=== PATIENT | male | born 1960 | race Two or more races ===

== ENCOUNTER → 2020-04-24 | Outpatient (CLI) | payer BC | END | disposition home or self-care (01) | LOC: LABWHC1 16:00 | PROVIDERS: ATTEND Internal Medicine | DX: R05 Cough (principal); R50.9 Fever, unspecified | CPT/HCPCS: 87635; C9803 ==

== ENCOUNTER 2021-06-18 19:49 | Inpatient (IN) | payer BC ==
[2021-06-18] MEDS ORDERED: SODIUM CHLORIDE 0.9% 1,000 ML IV STA ×3 (20:26→21:29)
[2021-06-18] MEDS ORDERED: MORPHINE SULFATE 4 MG/ML SYRINGE IV STA (20:26)
[2021-06-18] MEDS ORDERED: KETOROLAC 15 MG/ML 1 ML VIAL IVP STA (20:26)
[2021-06-18] MEDS ORDERED: ONDANSETRON 4 MG/2 ML VIAL IVP STA (20:26)
[2021-06-18] MEDS ORDERED: diphenhydrAMINE 50 MG/ML 1 ML VIAL IVP STA (20:26)
[2021-06-18] MEDS ORDERED: ACETAMINOPHEN TAB 500 MG TAB PO STA (20:38)
[2021-06-18 20:41] LABS: Basophils % (A) 0 %; Eosinophils % (A) 0 %; HCT 45.2 % (39.0-53.0); HGB 15.8 gm/dL (13.0-17.5); Lymphocytes # (A) 0.8 k/uL (1.0-4.8); Lymphocytes % (A) 5 %; MCH 30.4 pg (25.0-35.0); Mean Platelet Volume 6.8; Monocytes # (A) 0.9 k/uL (0-1.0); Monocytes % (A) 5 %; Neutrophils # (A) 15.2 k/uL (1.3-7.7); Neutrophils % (A) 89 %; Platelet Count 210 k/uL (150-450); RDW 13.5 % (11.5-15.5)
[2021-06-18 20:44] LABS: Appearance,Urine Clear (Clear); Bacteria,Urine Occasional /hpf; Bilirubin,Urine Negative (Negative); Blood,Urine Moderate (Negative); Color,Urine Light Yellow; Glucose,Urine (UA) 4+ (Negative); Ketones,Urine Negative (Negative); Leukocyte Esterase,Urine Large (Negative); Nitrite,Urine Negative (Negative); Protein,Urine 1+ (Negative); RBC,Urine 7 /hpf (0-5); Specific Gravity,Urine 1.017 (1.001-1.035); Squamous Epithelial Cell,Urine <1 /hpf (0-4); Urobilinogen,Urine <2.0 mg/dL (<2.0); WBC,Urine 115 /hpf (0-5)
[2021-06-18 20:51] LABS: INR 1.1 (<1.2); Partial Thromboplastin Time 25.5 sec (22.0-30.0); Prothrombin Time 11.3 sec (9.0-12.0)
[2021-06-18 20:52] LABS: ALT 19 U/L (4-49); AST 25 U/L (17-59); African American GFR (CKD) >90 (>60 ml/min/1.73 sqM); Albumin 4.9 g/dL (3.5-5.0); Alkaline Phosphatase 86 U/L (38-126); Amylase 57 U/L (30-110); Anion Gap 17 mmol/L; Blood Urea Nitrogen 17 mg/dL (9-20); Calcium 10.1 mg/dL (8.4-10.2); Carbon Dioxide 20 mmol/L (22-30); Chloride 99 mmol/L (98-107); Glucose 200 mg/dL (74-99); Lipase 139 U/L (23-300); Non-African American GFR(CKD) >90 (>60 ml/min/1.73 sqM); Potassium 3.5 mmol/L (3.5-5.1); Sodium 136 mmol/L (137-145); Total Bilirubin 1.7 mg/dL (0.2-1.3); Total Protein 7.8 g/dL (6.3-8.2)
[2021-06-18] MEDS ORDERED: VANCOMYCIN IV PER PHARMACY 1 EACH MISC MISCELLANE PRN (21:28)
--- NOTE | 2021-06-18 21:41 | CT ---
EXAMINATION TYPE: CT abdomen pelvis w con DATE OF EXAM: 06/18/2021 COMPARISON: None HISTORY: Abdominal pain. Lower back pain with fever. CT DLP: 1429.1 mGycm Automated exposure control for dose reduction was used. CONTRAST: Performed with IV Contrast, patient injected with 100 mL of Isovue 300. Images obtained from the diaphragm to the floor the pelvis with IV contrast. Lung bases are clear of infiltrate. There is no pleural effusion. Heart size is normal. There is no p ericardial effusion. Liver spleen and stomach pancreas appear intact. The bile ducts are not dilated. There is 3 cm cyst i n the left lobe of the liver. There is 1 cm cyst anterior right lobe of the liver. The gallbladder ap pears normal. Stomach is intact. There is no adrenal mass. Kidneys show satisfactory contrast opacification. There is no hydronephrosi s. Delayed images show normal renal excretion. There is no retroperitoneal adenopathy. Bladder disten ds smoothly. There is no inguinal hernia. There is no free fluid in the pelvis. There is no sign of a pelvic mass. Appendix appears normal. There is no mesenteric edema. There is no ascites or free air. There is no bowel obstruction. The lumbar vertebra have normal spacing and alignment. Posterior elements are intact. There is no com pression fracture. Abdominal aorta is atheromatous. There is L1 minimal anterior wedging of 15%. The bony pelvis is intact. The hip joints are intact. IMPRESSION: Negative CT scan abdomen and pelvis. Normal appendix.
[2021-06-18] MEDS ORDERED: CEFEPIME 2 GM in SODIUM CHLORIDE 0.9% 100 ML IVPB ONE (22:00)
[2021-06-18] MEDS ORDERED: VANCOMYCIN 1,750 MG in SODIUM CHLORIDE 0.9% 500 ML 500 ML IVPB ONE (22:00)
--- NOTE | 2021-06-18 22:47 | US ---
EXAMINATION TYPE: US kidneys/renal and bladder DATE OF EXAM: 06/18/2021 COMPARISON: NONE CLINICAL HISTORY: right flank pain, eval for hydronephrosis/stone. Right flank pain. EXAM MEASUREMENTS: Right Kidney: 13.0 x 5.7 x 6.2 cm Left Kidney: 12.8 x 6.0 x 6.2 cm Right Kidney: Appears enlarged. Lobulated contour, no mass clearly seen. Left Kidney: Appears slightly enlarged. Prominent pyramids. Hyperechoic area seen anteriorly: 0.4 x 0 .6 x 0.4 cm. Bladder: Appears anechoic. Wall appears slightly thickened at 0.49 cm. Bilateral Jets seen: Yes IMPRESSION: Kidneys are large but no discrete mass. No renal obstruction.
[2021-06-18] MEDS ORDERED: ONDANSETRON 4 MG/2 ML VIAL IVP PRN (22:54)
[2021-06-18] MEDS ORDERED: MORPHINE SULFATE 4 MG/ML SYRINGE IV PRN (22:54)
[2021-06-18] MEDS ORDERED: NALOXONE 0.4 MG/ML 1 ML VIAL IV PRN (22:54)
--- NOTE | 2021-06-18 23:18 | ED ---
General Adult HPI - General Chief complaint: Fever Stated complaint: Fever Time Seen by Provider: 06/18/21 20:05 Source: patient, RN notes reviewed, old records reviewed Mode of arrival: ambulatory Limitations: no limitations - History of Present Illness Initial comments: Patient is a 60-year-old male who presents emergency Department febrile, complaining of right-sided flank pain and right mid back pain. States the symptoms have been ongoing for one day. His past medical history remarkable for hypertension, hyperlipidemia, diabetes. He was instructed to come to the emergency department for further evaluation. Denies any chest pain, shortness of breath, diarrhea but does endorse nausea without emesis. Has less of an appetite. Patient did have Covid 2 years ago, but denies any recent symptoms other than the fever currently. His no other acute complaints at this time. He is concerned regarding his abdominal discomfort with nausea. Denies any dysuria but does endorse hematuria as well as urinary sediment. - Related Data Home Medications Medication Instructions Recorded Confirmed Atorvastatin [Lipitor] 40 mg PO HS 06/18/21 06/18/21 Empagliflozin [Jardiance] 10 mg PO DAILY 06/18/21 06/18/21 Losartan Potassium 100 mg PO DAILY 06/18/21 06/18/21 metFORMIN HCL 1,000 mg PO BID 06/18/21 06/18/21 Allergies Allergy/AdvReac Type Severity Reaction Status Date / Time Penicillins Allergy Anaphylaxis Verified 06/18/21 21:14 Review of Systems ROS Statement: Those systems with pertinent positive or pertinent negative responses have been documented in the HPI. Review of Systems: CONST: Endorses fever EYES: Denies blurry vision ENT: Denies nasal congestion C/V: Denies Chest pain RESP: Denies shortness of breath GI: Endorses abdominal pain : Endorses hematuria SKIN: Denies rash. MSK: Denies joint pain. NEURO: Denies headache ROS Other: All systems not noted in ROS Statement are negative. Past Medical History Past Medical History: Deep Vein Thrombosis (DVT), GERD/Reflux History of Any Multi-Drug Resistant Organisms: None Reported Past Surgical History: No Surgical Hx Reported Past Psychological History: No Psychological Hx Reported Smoking Status: Never smoker Past Alcohol Use History: None Reported Past Drug Use History: None Reported General Exam - General Exam Comments Initial Comments: General: Appears ill, in moderate distress secondary to abdominal discomfort. HEAD: Normal with no signs of head trauma. EYES: PERRLA, EOMI, conjunctiva normal, no discharge. ENT: Hearing grossly intact, normal oropharynx. RESPIRATORY: Clear breath sounds bilaterally. No wheezes, rales, or rhonchi. C/V: Patient is tachycardic with a regular rhythm. S1 and S2 auscultated. Peripheral pulses 2+ and intact throughout. ABD: Abdomen is soft, nondistended. Patient is tender to palpation in the right flank as well as right CVA. No left-sided abdominal tenderness. No guarding, peritoneal signs, or rebound tenderness. EXT: Normal range of motion, no obvious deformity SKIN: No rashes or lesions observed on exposed skin. NEURO: Alert and oriented 4. No focal deficits. Limitations: no limitations Course Vital Signs 06/18/21 19:53 Temperature 100.1 F H Pulse Rate 120 H Respiratory 20 Rate Blood Pressure 135/76 O2 Sat by Pulse 94 L Oximetry Medical Decision Making - Medical Decision Making Patient with patient's presentation and physical exam, I'm concerned for possible acute abdominal process for his current symptoms at this time. We will obtain abdominal laboratory studies, screening EKG, and ultrasound as well as abdominal CT. He'll be given a 1 L fluid bolus, as well as some dramatic treatment with IV Toradol, morphine, Zofran, Benadryl. He was in agreement this plan. Patient's EKG showed normal sinus rhythm with no signs of acute ischemia. Laboratory studies were remarkable for a leukocytosis of 17.0, lactic acid mildly elevated 2.3, as well as a urinalysis remarkable for 4+ glucose, 1+ protein, moderate blood, large leuk esterase, 7 RBCs, 115 WBCs. There are occasional bacteria. Covid is negative. Patient is mildly acidotic with a carbon dioxide of 20, which is likely secondary to his lactic acid. There is no anion gap. No concern for DKA at this time. Patient's glucose level is 200. At 2124, patient met sepsis criteria, having 3 sirs criteria. He was started on empiric antibiotics, vancomycin and cefepime. Blood cultures had already been obtained and sent. Vital signs remained within normal limits, and patient had lactic acid that was minimally elevated at 2.3. Patient already received a 1 L fluid bolus and was started on a second liter fluid bolus as well as 130 mL/h maintenance fluids to meet the 30 mL per KG minimal criteria. Patient has never been hypotensive and lactic acid is only 2.3 and therefore we do not complete the sepsis focused exam at this time. Patient's CT imaging revealed no acute intra-abdominal process. Renal ultrasound revealed large kidneys but no hydronephrosis, or renal obstruction. Patient was reevaluated multiple times throughout his stay in the emergency department. I Updated the patient results of his imaging and laboratory studies. He is feeling much improved, pain is under control and no longer feels nauseous. I would like to admit him to the hospital at this time, he was in agreement this plan. Patient has pyelonephritis. I spoke with the admitting team KAYLAH Bobby from [facility], who accepted the admission. Patient was therefore adm itted to Dr. Arellano in serious condition. - Lab Data Result diagrams: 06/18/21 20:31 06/18/21 20:31 Lab Results 06/18/21 06/18/21 06/18/21 Range/Units 20:31 20:31 20:31 WBC 17.0 H (3.8-10.6) k/uL RBC 5.20 (4.30-5.90) m/uL Hgb 15.8 (13.0-17.5) gm/dL Hct 45.2 (39.0-53.0) % MCV 87.0 (80.0-100.0) fL MCH 30.4 (25.0-35.0) pg MCHC 35.0 (31.0-37.0) g/dL RDW 13.5 (11.5-15.5) % Plt Count 210 (150-450) k/uL MPV 6.8 Neutrophils % 89 % Lymphocytes % 5 % Monocytes % 5 % Eosinophils % 0 % Basophils % 0 % Neutrophils # 15.2 H (1.3-7.7) k/uL Lymphocytes # 0.8 L (1.0-4.8) k/uL Monocytes # 0.9 (0-1.0) k/uL Eosinophils # 0.0 (0-0.7) k/uL Basophils # 0.0 (0-0.2) k/uL PT 11.3 (9.0-12.0) sec INR 1.1 (<1.2) APTT 25.5 (22.0-30.0) sec Sodium (137-145) mmol/L Potassium (3.5-5.1) mmol/L Chloride (98-107) mmol/L Carbon Dioxide (22-30) mmol/L Anion Gap mmol/L BUN (9-20) mg/dL Creatinine (0.66-1.25) mg/dL Est GFR (CKD-EPI)AfAm (>60 ml/min/1.73 sqM) Est GFR (CKD-EPI)NonAf (>60 ml/min/1.73 sqM) Glucose (74-99) mg/dL Lactic Ac Sepsis Rflx Plasma Lactic Acid Julius (0.7-2.0) mmol/L Calcium (8.4-10.2) mg/dL Total Bilirubin (0.2-1.3) mg/dL AST (17-59) U/L ALT (4-49) U/L Alkaline Phosphatase (38-126) U/L Total Protein (6.3-8.2) g/dL Albumin (3.5-5.0) g/dL Amylase (30-110) U/L Lipase (23-300) U/L Urine Color Light Yellow Urine Appearance Clear (Clear) Urine pH 5.0 (5.0-8.0) Ur Specific Severance 1.017 (1.001-1.035) Urine Protein 1+ H (Negative) Urine Glucose (UA) 4+ H (Negative) Urine Ketones Negative (Negative) Urine Blood Moderate H (Negative) Urine Nitrite Negative (Negative) Urine Bilirubin Negative (Negative) Urine Urobilinogen <2.0 (<2.0) mg/dL Ur Leukocyte Esterase Large H (Negative) Urine RBC 7 H (0-5) /hpf Urine WBC 115 H (0-5) /hpf Ur Squamous Epith Cells <1 (0-4) /hpf Urine Bacteria Occasional H (None) /hpf Coronavirus (PCR) (Not Detectd) 06/18/21 06/18/21 06/18/21 Range/Units 20:31 20:31 21:03 WBC (3.8-10.6) k/uL RBC (4.30-5.90) m/uL Hgb (13.0-17.5) gm/dL Hct (39.0-53.0) % MCV (80.0-100.0) fL MCH (25.0-35.0) pg MCHC (31.0-37.0) g/dL RDW (11.5-15.5) % Plt Count (150-450) k/uL MPV Neutrophils % % Lymphocytes % % Monocytes % % Eosinophils % % Basophils % % Neutrophils # (1.3-7.7) k/uL Lymphocytes # (1.0-4.8) k/uL Monocytes # (0-1.0) k/uL Eosinophils # (0-0.7) k/uL Basophils # (0-0.2) k/uL PT (9.0-12.0) sec INR (<1.2) APTT (22.0-30.0) sec Sodium 136 L (137-145) mmol/L Potassium 3.5 (3.5-5.1) mmol/L Chloride 99 (98-107) mmol/L Carbon Dioxide 20 L (22-30) mmol/L Anion Gap 17 mmol/L BUN 17 (9-20) mg/dL Creatinine 0.66 (0.66-1.25) mg/dL Est GFR (CKD-EPI)AfAm >90 (>60 ml/min/1.73 sqM) Est GFR (CKD-EPI)NonAf >90 (>60 ml/min/1.73 sqM) Glucose 200 H (74-99) mg/dL Lactic Ac Sepsis Rflx Y Plasma Lactic Acid Julius 2.3 H* (0.7-2.0) mmol/L Calcium 10.1 (8.4-10.2) mg/dL Total Bilirubin 1.7 H (0.2-1.3) mg/dL AST 25 (17-59) U/L ALT 19 (4-49) U/L Alkaline Phosphatase 86 (38-126) U/L Total Protein 7.8 (6.3-8.2) g/dL Albumin 4.9 (3.5-5.0) g/dL Amylase 57 (30-110) U/L Lipase 139 (23-300) U/L Urine Color Urine Appearance (Clear) Urine pH (5.0-8.0) Ur Specific Severance (1.001-1.035) Urine Protein (Negative) Urine Glucose (UA) (Negative) Urine Ketones (Negative) Urine Blood (Negative) Urine Nitrite (Negative) Urine Bilirubin (Negative) Urine Urobilinogen (<2.0) mg/dL Ur Leukocyte Esterase (Negative) Urine RBC (0-5) /hpf Urine WBC (0-5) /hpf Ur Squamous Epith Cells (0-4) /hpf Urine Bacteria (None) /hpf Coronavirus (PCR) (Not Detectd) 06/18/21 Range/Units 21:46 WBC (3.8-10.6) k/uL RBC (4.30-5.90) m/uL Hgb (13.0-17.5) gm/dL Hct (39.0-53.0) % MCV (80.0-100.0) fL MCH (25.0-35.0) pg MCHC (31.0-37.0) g/dL RDW (11.5-15.5) % Plt Count (150-450) k/uL MPV Neutrophils % % Lymphocytes % % Monocytes % % Eosinophils % % Basophils % % Neutrophils # (1.3-7.7) k/uL Lymphocytes # (1.0-4.8) k/uL Monocytes # (0-1.0) k/uL Eosinophils # (0-0.7) k/uL Basophils # (0-0.2) k/uL PT (9.0-12.0) sec INR (<1.2) APTT (22.0-30.0) sec Sodium (137-145) mmol/L Potassium (3.5-5.1) mmol/L Chloride (98-107) mmol/L Carbon Dioxide (22-30) mmol/L Anion Gap mmol/L BUN (9-20) mg/dL Creatinine (0.66-1.25) mg/dL Est GFR (CKD-EPI)AfAm (>60 ml/min/1.73 sqM) Est GFR (CKD-EPI)NonAf (>60 ml/min/1.73 sqM) Glucose (74-99) mg/dL Lactic Ac Sepsis Rflx Plasma Lactic Acid Julius (0.7-2.0) mmol/L Calcium (8.4-10.2) mg/dL Total Bilirubin (0.2-1.3) mg/dL AST (17-59) U/L ALT (4-49) U/L Alkaline Phosphatase (38-126) U/L Total Protein (6.3-8.2) g/dL Albumin (3.5-5.0) g/dL Amylase (30-110) U/L Lipase (23-300) U/L Urine Color Urine Appearance (Clear) Urine pH (5.0-8.0) Ur Specific Severance (1.001-1.035) Urine Protein (Negative) Urine Glucose (UA) (Negative) Urine Ketones (Negative) Urine Blood (Negative) Urine Nitrite (Negative) Urine Bilirubin (Negative) Urine Urobilinogen (<2.0) mg/dL Ur Leukocyte Esterase (Negative) Urine RBC (0-5) /hpf Urine WBC (0-5) /hpf Ur Squamous Epith Cells (0-4) /hpf Urine Bacteria (None) /hpf Coronavirus (PCR) Not Detected (Not Detectd) - EKG Data -: EKG Interpreted by Me EKG Comments: 12-lead Electrocardiogram Interpretation Note EKG was reviewed and interpreted by myself. 12-lead ECG performed at 2104 is interpreted by me as revealing normal sinus rhythm at a rate of 96 beats per minute. [place] is normal. MA interval is 164 ms, QRS duration is 80 ms, QTc is 427 ms.. There were no ST or T wave abnormalities to suggest myocardial ischemi a or injury. R wave progression across the precordium was satisfactory. By my interpretation this EKG is non-diagnostic for acute ischemia. Critical Care Time Critical Care Time: Yes Total Critical Care Time: 35 Critical Care Time: Upon my evaluation, this patient had a high probability of imminent or life- threatening deterioration due to sepsis, pyelonephritis, which required my di rect attention, intervention, and personal management. I have personally provided 35 minutes of critical care time exclusive of time spent on separately billable procedures. Time includes review of laboratory data, radiology results, discussion with consultants, and monitoring for potential decompensation. Interventions were performed as documented in my note. Disposition Clinical Impression: Febrile illness, Abdominal pain, Sepsis, Pyelonephritis, Hematuria Disposition: ADMITTED IP TO THIS HOSP Condition: Serious Referrals: Brendan Hoang MD [Primary Care Provider] - 1-2 days
[2021-06-19] MEDS: ACETAMINOPHEN TAB 325 MG TAB PO PRN ×4 (01:33→21:21)
[2021-06-19] MEDS: HEPARIN SODIUM,PORCINE/PF 5,000 UNIT/0.5 ML SYRINGE SQ SCH ×2 (01:34→07:56)
[2021-06-19 03:57] LABS: Basophils % (A) 0 %; Eosinophils % (A) 0 %; HCT 42.3 % (39.0-53.0); HGB 14.3 gm/dL (13.0-17.5); Lymphocytes # (A) 0.7 k/uL (1.0-4.8); Lymphocytes % (A) 5 %; MCHC 33.9 g/dL (31.0-37.0); MCV 88.4 fL (80.0-100.0); Mean Platelet Volume 7.2; Monocytes # (A) 0.8 k/uL (0-1.0); Monocytes % (A) 5 %; Neutrophils # (A) 13.1 k/uL (1.3-7.7); Neutrophils % (A) 89 %; Platelet Count 169 k/uL (150-450); RBC 4.79 m/uL (4.30-5.90); RDW 13.2 % (11.5-15.5); WBC 14.7 k/uL (3.8-10.6)
[2021-06-19 04:16] LABS: ALT 16 U/L (4-49); AST 24 U/L (17-59); African American GFR (CKD) >90 (>60 ml/min/1.73 sqM); Albumin 3.8 g/dL (3.5-5.0); Alkaline Phosphatase 77 U/L (38-126); Anion Gap 9 mmol/L; Blood Urea Nitrogen 18 mg/dL (9-20); Calcium 8.8 mg/dL (8.4-10.2); Carbon Dioxide 23 mmol/L (22-30); Chloride 106 mmol/L (98-107); Glucose 176 mg/dL (74-99); Magnesium 1.8 mg/dL (1.6-2.3); Non-African American GFR(CKD) >90 (>60 ml/min/1.73 sqM); Potassium 3.2 mmol/L (3.5-5.1); Sodium 138 mmol/L (137-145); Total Bilirubin 1.3 mg/dL (0.2-1.3); Total Protein 6.1 g/dL (6.3-8.2)
[2021-06-19] MEDS ORDERED: CEFEPIME 2 GM in SODIUM CHLORIDE 0.9% 100 ML IVPB SCH (06:00)
[2021-06-19] MEDS ORDERED: VANCOMYCIN 1,500 MG in SODIUM CHLORIDE 0.9% 250 ML IVPB SCH (07:00)
[2021-06-19] MEDS: LOSARTAN 50 MG TAB PO SCH (07:56)
[2021-06-19] MEDS: NON FORMULARY DRUG (Empagliflozin [Jardiance] 10 MG Tablet) PO SCH (07:59)
[2021-06-19] MEDS ORDERED: metFORMIN 500 MG TAB PO SCH (09:00)
[2021-06-19] MEDS ORDERED: POTASSIUM CHLORIDE ER 20 MEQ TAB.ER PO STA ×2 (11:20)
--- NOTE | 2021-06-19 11:29 | P.HPIM ---
History of Present Illness 60-year-old the pleasant male came in with complaints of right-sided flank pain and suprapubic discomfort of one day duration before admission and patient passed a stone which felt like sand and that he's of meat along with hematuria. Patient does have abnormal urine although has a negative nitrate. Patient did have fever chills a day before admission and aren't on admission. Patient was started on vancomycin and cefepime was subsequently admitted urine cultures and blood cultures were obtained. Patient is diabetic. Patient did have lactic acidosis with the serum lactate of 2.3 probably from sepsis but patient is also on metformin. REVIEW OF SYSTEMS: CONSTITUTIONAL: No fever, no malaise, no fatigue. HEENT: No recent visual problems or hearing problems. Denied any sore throat. CARDIOVASCULAR: No chest pain, orthopnea, PND, no palpitations, no syncope. PULMONARY: No shortness of breath, no cough, no hemoptysis. GASTROINTESTINAL: No diarrhea, no nausea, no vomiting, no abdominal pain. NEUROLOGICAL: No headaches, no weakness, no numbness. HEMATOLOGICAL: Denies any bleeding or petechiae. GENITOURINARY: As mentioned in HPI MUSCULOSKELETAL/RHEUMATOLOGICAL: Denies any joint pain, swelling, or any muscle pain. ENDOCRINE: Denies any polyuria or polydipsia. The rest of the 14-point review of systems is negative. PHYSICAL EXAMINATION: GENERAL: The patient is alert and oriented x3, not in any acute distress. Well developed, well nourished. HEENT: Pupils are round and equally reacting to light. EOMI. No scleral icterus. No conjunctival pallor. Normocephalic, atraumatic. No pharyngeal erythema. No thyromegaly. CARDIOVASCULAR: S1 and S2 present. No murmurs, rubs, or gallops. PULMONARY: Chest is clear to auscultation, no wheezing or crackles. ABDOMEN: Soft, nontender, nondistended, normoactive bowel sounds. No palpable organomegaly. MUSCULOSKELETAL: No joint swelling or deformity. EXTREMITIES: No cyanosis, clubbing, or pedal edema. NEUROLOGICAL: Gross neurological examination did not reveal any focal deficits. SKIN: No rashes. Assessment and plan -Sepsis secondary to urinary tract infection, pyelonephritis, cystitis along with the kidney stones. Patient's the admission and medics were discontinued and patient was started on 2 g of Rocephin. We will await urine cultures and b lood cultures. Repeat the CBC and basic metabolic profile tomorrow next and have lactic acidosis secondary to sepsis hold off on metformin because of lactic acidosis patient will be continued on rest of the home diabetic medications and sliding scale insulin. -Type 2 diabetes mellitus management as mentioned above next and have an hypertension next -hyperlipidemia -Hematuria: Secondary to nephrolithiasis and infection. Patient will be referred to urology as cystoscopy may be beneficial. -DVT prophylaxis: Lovenox Past Medical History Past Medical History: Deep Vein Thrombosis (DVT), GERD/Reflux History of Any Multi-Drug Resistant Organisms: None Reported Past Surgical History: No Surgical Hx Reported Past Anesthesia/Blood Transfusion Reactions: No Reported Reaction Past Psychological History: No Psychological Hx Reported Smoking Status: Never smoker Past Alcohol Use History: None Reported Past Drug Use History: None Reported Medications and Allergies Home Medications Medication Instructions Recorded Confirmed Type Atorvastatin [Lipitor] 40 mg PO HS 06/18/21 06/18/21 History Empagliflozin [Jardiance] 10 mg PO DAILY 06/18/21 06/18/21 History Losartan Potassium 100 mg PO DAILY 06/18/21 06/18/21 History metFORMIN HCL 1,000 mg PO BID 06/18/21 06/18/21 History Allergies Allergy/AdvReac Type Severity Reaction Status Date / Time Penicillins Allergy Anaphylaxis Verified 06/18/21 21:14 Physical Exam Vitals: Vital Signs Temp Pulse Pulse Pulse Resp BP BP 06/19/21 07:00 99.0 F 99 20 118/72 06/19/21 01:06 98.6 F 113 H 22 120/69 06/18/21 23:19 100.6 F H 110 H 18 118/70 06/18/21 20:00 110 H 06/18/21 19:53 100.1 F H 120 H 20 135/76 Pulse Ox 06/19/21 07:00 94 L 06/19/21 01:06 06/18/21 23:19 95 06/18/21 20:00 06/18/21 19:53 94 L Intake and Output 06/18/21 06/19/21 06/19/21 22:59 06:59 14:59 Other: Voiding Method Urinal Urinal Toilet # Voids 1 Weight 92.986 kg 92.986 kg Results CBC & Chem 7: 06/19/21 03:22 01/19/22 03:22 Labs: Abnormal Lab Results - Last 24 Hours (Table) 06/18/21 06/18/21 06/18/21 Range/Units 20:31 20:31 20:31 WBC 17.0 H (3.8-10.6) k/uL Neutrophils # 15.2 H (1.3-7.7) k/uL Lymphocytes # 0.8 L (1.0-4.8) k/uL Sodium 136 L (137-145) mmol/L Potassium (3.5-5.1) mmol/L Carbon Dioxide 20 L (22-30) mmol/L Glucose 200 H (74-99) mg/dL Plasma Lactic Acid Julius (0.7-2.0) mmol/L Total Bilirubin 1.7 H (0.2-1.3) mg/dL Total Protein (6.3-8.2) g/dL Urine Protein 1+ H (Negative) Urine Glucose (UA) 4+ H (Negative) Urine Blood Moderate H (Negative) Ur Leukocyte Esterase Large H (Negative) Urine RBC 7 H (0-5) /hpf Urine WBC 115 H (0-5) /hpf Urine Bacteria Occasional H (None) /hpf 06/18/21 06/19/21 06/19/21 Range/Units 20:31 00:53 03:22 WBC 14.7 H (3.8-10.6) k/uL Neutrophils # 13.1 H (1.3-7.7) k/uL Lymphocytes # 0.7 L (1.0-4.8) k/uL Sodium (137-145) mmol/L Potassium (3.5-5.1) mmol/L Carbon Dioxide (22-30) mmol/L Glucose (74-99) mg/dL Plasma Lactic Acid Julius 2.3 H* 3.1 H* (0.7-2.0) mmol/L Total Bilirubin (0.2-1.3) mg/dL Total Protein (6.3-8.2) g/dL Urine Protein (Negative) Urine Glucose (UA) (Negative) Urine Blood (Negative) Ur Leukocyte Esterase (Negative) Urine RBC (0-5) /hpf Urine WBC (0-5) /hpf Urine Bacteria (None) /hpf 06/19/21 Range/Units 03:22 WBC (3.8-10.6) k/uL Neutrophils # (1.3-7.7) k/uL Lymphocytes # (1.0-4.8) k/uL Sodium (137-145) mmol/L Potassium 3.2 L (3.5-5.1) mmol/L Carbon Dioxide (22-30) mmol/L Glucose 176 H (74-99) mg/dL Plasma Lactic Acid Julius (0.7-2.0) mmol/L Total Bilirubin (0.2-1.3) mg/dL Total Protein 6.1 L (6.3-8.2) g/dL Urine Protein (Negative) Urine Glucose (UA) (Negative) Urine Blood (Negative) Ur Leukocyte Esterase (Negative) Urine RBC (0-5) /hpf Urine WBC (0-5) /hpf Urine Bacteria (None) /hpf Microbiology - Last 24 Hours (Table) 06/18/21 20:31 Urine Culture - Preliminary Urine,Clean Catch Thrombosis Risk Factor Assmnt - Choose All That Apply Any of the Below Risk Factors Present?: Yes Each Factor Represents 1 point: Age 41-60 years, Obesity (BMI >25) Other Risk Factors: No Other congenital or acquired thrombophilia - If yes, enter type in comment: No Thrombosis Risk Factor Assessment Total Risk Factor Score: 2 Thrombosis Risk Factor Assessment Level: Low Risk
[2021-06-19 11:40] LABS: Glucose,Whole Blood 252 mg/dL (75-99)
[2021-06-19] MEDS: SODIUM CHLORIDE 0.9% 1,000 ML IV SCH (11:43)
[2021-06-19] MEDS: INSULIN ASPART (NovoLOG) 100 UNIT/ML VIAL SQ SCH ×3 (13:04→20:49)
[2021-06-19 17:23] LABS: Glucose,Whole Blood 210 mg/dL (75-99)
[2021-06-19 20:36] LABS: Glucose,Whole Blood 177 mg/dL (75-99)
[2021-06-19] MEDS: ATORVASTATIN 40 MG TAB PO SCH (20:49)
[2021-06-20] MEDS: SODIUM CHLORIDE 0.9% 1,000 ML IV SCH ×2 (03:34→18:48)
[2021-06-20] MEDS: ACETAMINOPHEN TAB 325 MG TAB PO PRN ×2 (05:55→20:55)
[2021-06-20] MEDS ORDERED: VANCOMYCIN TROUGH DUE 1 EACH MISC MISCELLANE ONE (06:00)
[2021-06-20 06:42] LABS: African American GFR (CKD) >90 (>60 ml/min/1.73 sqM); Anion Gap 8 mmol/L; Blood Urea Nitrogen 12 mg/dL (9-20); Calcium 8.7 mg/dL (8.4-10.2); Carbon Dioxide 24 mmol/L (22-30); Chloride 107 mmol/L (98-107); Glucose 225 mg/dL (74-99); Non-African American GFR(CKD) >90 (>60 ml/min/1.73 sqM); Potassium 3.6 mmol/L (3.5-5.1); Sodium 139 mmol/L (137-145)
[2021-06-20] MEDS: LOSARTAN 50 MG TAB PO SCH (08:53)
[2021-06-20] MEDS: INSULIN ASPART (NovoLOG) 100 UNIT/ML VIAL SQ SCH ×4 (08:54→22:49)
[2021-06-20] MEDS: ENOXAPARIN 40 MG/0.4 ML SYRINGE SQ SCH (08:54)
[2021-06-20] MEDS: NON FORMULARY DRUG (Empagliflozin [Jardiance] 10 MG Tablet) PO SCH (08:54)
[2021-06-20 09:22] LABS: HCT 38.9 % (39.6-50.0); HGB 12.9 g/dL (13.0-17.0); MCH 29.3 pg (27.0-32.0); MCHC 33.2 g/dL (32.0-37.0); MCV 88.2 fL (80.0-97.0); Mean Platelet Volume 10.2 fL (9.5-12.2); Platelet Count 123 X 10*3/uL (140-440); RBC 4.41 X 10*6/uL (4.40-5.60); RDW 13.2 % (11.5-14.5)
[2021-06-20 09:46] LABS: Glucose,Whole Blood 196 mg/dL (75-99)
[2021-06-20 12:41] LABS: Glucose,Whole Blood 181 mg/dL (75-99)
[2021-06-20] MEDS ORDERED: CYANOCOBALAMIN 1,000 MCG/ML 1 ML VIAL IM ONE (16:30)
[2021-06-20 17:25] LABS: Glucose,Whole Blood 146 mg/dL (75-99)
[2021-06-20] MEDS: ATORVASTATIN 40 MG TAB PO SCH (20:56)
[2021-06-20 22:13] LABS: Glucose,Whole Blood 226 mg/dL (75-99)
[2021-06-21] MEDS: SODIUM CHLORIDE 0.9% 1,000 ML IV SCH (04:32)
[2021-06-21 07:51] LABS: Glucose,Whole Blood 170 mg/dL (75-99)
[2021-06-21 07:55] VITALS: RESP 18
[2021-06-21] MEDS: INSULIN ASPART (NovoLOG) 100 UNIT/ML VIAL SQ SCH ×2 (08:08→13:36)
[2021-06-21] MEDS: ACETAMINOPHEN TAB 325 MG TAB PO PRN (08:10)
[2021-06-21] MEDS: LOSARTAN 50 MG TAB PO SCH (08:10)
[2021-06-21] MEDS: ENOXAPARIN 40 MG/0.4 ML SYRINGE SQ SCH (08:11)
[2021-06-21] MEDS: NON FORMULARY DRUG (Empagliflozin [Jardiance] 10 MG Tablet) PO SCH (08:12)
[2021-06-21] MEDS ORDERED: FAMOTIDINE 20 MG TAB PO SCH (09:00)
[2021-06-21] MEDS ORDERED: CYANOCOBALAMIN 500 MCG TAB PO SCH (09:00)
--- NOTE | 2021-06-21 10:20 | P.PN ---
Subjective Progress Note Date: 06/20/21 60-year-old the pleasant male came in with complaints of right-sided flank pain and suprapubic discomfort of one day duration before admission and patient passed a stone which felt like sand and that he's of meat along with hematuria. Patient does have abnormal urine although has a negative nitrate. Patient did have fever chills a day before admission and aren't on admission. Patient was started on vancomycin and cefepime was subsequently admitted urine cultures and blood cultures were obtained. Patient is diabetic. Patient did have lactic acidosis with the serum lactate of 2.3 probably from sepsis but patient is also on metformin. 06/20/2021 Patient evaluated today ambulating in his room. He states that Evening he was quite diaphoretic and continues to sweat this morning. He did complain of some itchiness on his right shoulder and neck area for the evening. He also complains of some lesions/bumps on the inside of his lower lip. Denies any wheezing. He states that this reaction seemed to come about after his dose of IV Rocephin. We did stop the Rocephin. Patient does report penicillin ALLERGY and his daughter has a severe penicillin ALLERGY. He does still complain of some burning with urination and suprapubic pain is tender to palpation. Labs today show white count 13.7, hemoglobin 12.9, potassium 3.6, creatinine 0.65, blood sugars in the 180s. Blood cultures are negative. Vitals, afebrile last 24 hours, heart rate 82, blood pressure 135/79, 92% on room air. ROS Constitutional: Denied any fatigue denied any fever, reports diaphoresis Cardio vascular: denied any chest pain, palpitations Gastrointestinal: denied any nausea vomiting, denies abd pain : Reports suprapubic pain and tenderness, burning with urination, denies flank pain Pulmonary: Denied any shortness of breath cough Neurologic denied any new focal deficits All inpatient medications were reviewed and appropriate changes in these medications as dictated in the interval history and assessment and plan. PHYSICAL EXAMINATION: GENERAL: The patient is alert and oriented x3, not in any acute distress. Well developed, well nourished. HEENT: Pupils are round and equally reacting to light. EOMI. No scleral icterus. No conjunctival pallor. Normocephalic, atraumatic. No pharyngeal erythema. No t hyromegaly. CARDIOVASCULAR: S1 and S2 present. No murmurs, rubs, or gallops. PULMONARY: Chest is clear to auscultation, no wheezing or crackles. ABDOMEN: Soft, tender suprapubic region, nondistended, normoactive bowel sounds. No palpable organomegaly. MUSCULOSKELETAL: No joint swelling or deformity. EXTREMITIES: No cyanosis, clubbing, or pedal edema. NEUROLOGICAL: Gross neurological examination did not reveal any focal deficits. SKIN: No rashes. Assessment and plan -Sepsis secondary to urinary tract infection, pyelonephritis, cystitis along with the kidney stones. Patient was started on rocephin, this was stopped due to possible allergic reaction. We will await urine cultures and blood cultures. -Lactic acidosis secondary to sepsis, improved -Type 2 diabetes mellitus, metformin onhold due to lactic acidosis -Gastroesophageal reflux disease -Hypertension -Hyperlipidemia -Hematuria: Secondary to nephrolithiasis and infection. Patient will be referred to urology as cystoscopy may be beneficial. -DVT prophylaxis: Lovenox -GI Prophylaxis: Pepcid FULL CODE Plan Continue Antibiotics Vitamin B12 Awaiting finalized cultures Post void residuals Strain urine Objective - Vital Signs Vital signs: Vital Signs Temp 98.2 F 06/20/21 08:00 Pulse 82 06/20/21 08:00 Resp 16 06/20/21 08:00 BP 135/79 06/20/21 08:00 Pulse Ox 92 L 06/20/21 08:00 Intake & Output 06/19/21 06/20/21 06/20/21 18:59 06:59 18:59 Intake Total 118 700 653 Output Total 250 Balance -132 700 653 Intake: Oral 118 700 653 Output: Urine 250 Other: Voiding Method Toilet Toilet Toilet # Voids 2 - Labs CBC & Chem 7: 06/20/21 06:00 06/20/21 06:00 Labs: Abnormal Lab Results - Last 24 Hours (Table) 06/19/21 06/19/21 06/20/21 Range/Units 17:14 : 06:00 WBC (4.50-10.00) X 10*3/uL Hgb (13.0-17.0) g/dL Hct (39.6-50.0) % Plt Count (140-440) X 10*3/uL Creatinine 0.65 L (0.66-1.25) mg/dL Glucose 225 H (74-99) mg/dL POC Glucose (mg/dL) 210 H 177 H (75-99) mg/dL 06/20/21 06/20/21 Range/Units 06:00 07:11 WBC 13.70 H (4.50-10.00) X 10*3/uL Hgb 12.9 L (13.0-17.0) g/dL Hct 38.9 L (39.6-50.0) % Plt Count 123 L (140-440) X 10*3/uL Creatinine (0.66-1.25) mg/dL Glucose (74-99) mg/dL POC Glucose (mg/dL) 196 H (75-99) mg/dL Microbiology - Last 24 Hours (Table) 06/18/21 20:31 Blood Culture - Preliminary Blood No Growth after 24 hours 06/18/21 20:31 Blood Culture - Preliminary Blood No Growth after 24 hours
--- NOTE | 2021-06-21 10:23 | P.PN ---
Subjective Progress Note Date: 06/21/21 60-year-old the pleasant male came in with complaints of right-sided flank pain and suprapubic discomfort of one day duration before admission and patient passed a stone which felt like sand and that he's of meat along with hematuria. Patient does have abnormal urine although has a negative nitrate. Patient did have fever chills a day before admission and aren't on admission. Patient was started on vancomycin and cefepime was subsequently admitted urine cultures and blood cultures were obtained. Patient is diabetic. Patient did have lactic acidosis with the serum lactate of 2.3 probably from sepsis but patient is also on metformin. 06/20/2021 Patient evaluated today ambulating in his room. He states that Evening he was quite diaphoretic and continues to sweat this morning. He did complain of some itchiness on his right shoulder and neck area for the evening. He also complains of some lesions/bumps on the inside of his lower lip. Denies any wheezing. He states that this reaction seemed to come about after his dose of IV Rocephin. We did stop the Rocephin. Patient does report penicillin ALLERGY and his daughter has a severe penicillin ALLERGY. He does still complain of some burning with urination and suprapubic pain is tender to palpation. Labs today show white count 13.7, hemoglobin 12.9, potassium 3.6, creatinine 0.65, blood sugars in the 180s. Blood cultures are negative. Vitals, afebrile last 24 hours, heart rate 82, blood pressure 135/79, 92% on room air. 06/21/2021 After further evaluation yesterday we did give B12 for the lesions on the inside of his lower labs as this can be a common symptom of vitamin B-12 deficiency. Rocephin was resumed and patient had no further complications. He does still complain of some sweating however this could be related to fever. He had a low- grade of 99 yesterday evening, heart rate 89, blood pressure 144/89 and he is 96% room air. Urine cultures show gram-negative bacilli pending finalized cultures for antibiotics on discharge. He denies any flank pain, sporadic pain is improved abdomen is nontender to palpation. There is some minimal burning with urination however that is improving as well. Urine is being strained there are no further evidence of stones. ROS Constitutional: Denied any fatigue denied any fever, reports diaphoresis Cardio vascular: denied any chest pain, palpitations Gastrointestinal: denied any nausea vomiting, denies abd pain : Suprapubic pain and tenderness improved, burning with urination, denies flank pain Pulmonary: Denied any shortness of breath cough Neurologic denied any new focal deficits All inpatient medications were reviewed and appropriate changes in these medicat ions as dictated in the interval history and assessment and plan. PHYSICAL EXAMINATION: GENERAL: The patient is alert and oriented x3, not in any acute distress. Well developed, well nourished. HEENT: Pupils are round and equally reacting to light. EOMI. No scleral icterus. No conjunctival pallor. Normocephalic, atraumatic. No pharyngeal erythema. No thyromegaly. CARDIOVASCULAR: S1 and S2 present. No murmurs, rubs, or gallops. PULMONARY: Chest is clear to auscultation, no wheezing or crackles. ABDOMEN: Soft, nontender, nondistended, normoactive bowel sounds. No palpable organomegaly. MUSCULOSKELETAL: No joint swelling or deformity. EXTREMITIES: No cyanosis, clubbing, or pedal edema. NEUROLOGICAL: Gross neurological examination did not reveal any focal deficits. SKIN: No rashes. Assessment and plan -Sepsis secondary to urinary tract infection, pyelonephritis, cystitis along wi th the kidney stones. On IV rocephin. Preliminary urine cultures show gram- negative bacilli -Lactic acidosis secondary to sepsis, improved -Type 2 diabetes mellitus, metformin onhold due to lactic acidosis -Gastroesophageal reflux disease -Hypertension -Hyperlipidemia -Hematuria: Secondary to nephrolithiasis and infection. No further evidence of blood in the urine. -DVT prophylaxis: Lovenox -GI Prophylaxis: Pepcid FULL CODE Plan Continue Antibiotics Vitamin B12 Awaiting finalized cultures Post void residuals Strain urine Patient will be referred to urology as cystoscopy may be beneficial. Objective - Vital Signs Vital signs: Vital Signs Temp 97.3 F L 06/21/21 07:54 Pulse 78 06/21/21 07:54 Resp 18 06/21/21 07:54 BP 130/73 06/21/21 07:54 Pulse Ox 98 06/21/21 07:54 Intake & Output 06/20/21 06/21/21 06/21/21 18:59 06:59 18:59 Intake Total 653 Balance 653 Intake: Oral 653 Other: Voiding Method Toilet # Voids 2 - Labs CBC & Chem 7: 06/20/21 06:00 06/20/21 06:00 Labs: Abnormal Lab Results - Last 24 Hours (Table) 06/20/21 06/20/21 06/20/21 Range/Units 12:38 17:23 22:07 POC Glucose (mg/dL) 181 H 146 H 226 H (75-99) mg/dL 06/21/21 Range/Units 07:47 POC Glucose (mg/dL) 170 H (75-99) mg/dL Microbiology - Last 24 Hours (Table) 06/18/21 20:31 Blood Culture - Preliminary Blood No Growth after 48 hours 06/18/21 20:31 Blood Culture - Preliminary Blood No Growth after 48 hours 06/18/21 20:31 Urine Culture - Preliminary Urine,Clean Catch Gram Neg Bacilli
[2021-06-21 12:17] LABS: Glucose,Whole Blood 198 mg/dL (75-99)
[2021-06-21 14:45] VITALS: BP 149/84; PULSE 80; TEMP 97.6
[2021-06-21] MEDS ORDERED: POTASSIUM CHLORIDE ER 20 MEQ TAB.ER PO STA (15:49)
--- NOTE | 2021-06-21 15:55 | P.DS ---
Providers Date of admission: 06/18/21 22:54 Attending physician: Deonte Arellano Primary care physician: Natalya Cardona [facility] Course: Final diagnoses -Sepsis secondary to urinary tract infection, pyelonephritis, cystitis along with the kidney stones. Cultures finalized E. coli -Lactic acidosis secondary to sepsis, improved -Type 2 diabetes mellitus, metformin onhold due to lactic acidosis can resume on discharge -Gastroesophageal reflux disease -Hypertension -Hyperlipidemia -Hematuria: Secondary to nephrolithiasis and infection. No further evidence of blood in the urine. Discharge disposition Stable for discharge from a medical standpoint, urine culture finalized E. coli, patient has no further complaints of suprapubic pain or tenderness. Patient needs to follow-up with urology for cystoscopy due to evidence of hematuria found on urinalysis. Would like to prescribe a PPI for prophylaxis due to additional 5 days of oral antibiotic therapy however with Ceftin there is decreased absorption while taking with pepcid or protonix. Please see progress note dated 06/21/2021 for additional information. Please see medication reconciliation for list of current medications. Thank you for allowing us to participate in the care of this patient. Patient Condition at Discharge: Stable Plan - Discharge Summary Discharge Rx Participant: Yes New Discharge Prescriptions: New cefTRIAXone [Rocephin] 2 gm IVPB Q24HR each Cefuroxime Axetil [Ceftin] 500 mg PO BID 5 Days #10 tab Acetaminophen Tab [Tylenol] 650 mg PO Q6HR PRN tab PRN Reason: Mild Pain Or Fever > 100.5 Cyanocobalamin [Vitamin B-12] 500 mcg PO DAILY #30 tab Continue metFORMIN HCL 1,000 mg PO BID Losartan Potassium 100 mg PO DAILY Atorvastatin [Lipitor] 40 mg PO HS Empagliflozin [Jardiance] 10 mg PO DAILY Discharge Medication List Atorvastatin [Lipitor] 40 mg PO HS 06/18/21 [History] Empagliflozin [Jardiance] 10 mg PO DAILY 06/18/21 [History] Losartan Potassium 100 mg PO DAILY 06/18/21 [History] metFORMIN HCL 1,000 mg PO BID 06/18/21 [History] Acetaminophen Tab [Tylenol] 650 mg PO Q6HR PRN tab 06/21/21 [Rx] Cefuroxime Axetil [Ceftin] 500 mg PO BID 5 Days #10 tab 06/21/21 [Rx] Cyanocobalamin [Vitamin B-12] 500 mcg PO DAILY #30 tab 06/21/21 [Rx] cefTRIAXone [Rocephin] 2 gm IVPB Q24HR each 06/21/21 [Rx] Follow up Appointment(s)/Referral(s): Brendan Hoang MD [Primary Care Provider] - 3 Days Valdo Santana MD [STAFF PHYSICIAN] - 1 Week (follow up for cystoscopy for hematuria) Ambulatory/Diagnostic Orders: Basic Metabolic Panel [LAB.AMB] Time Frame: 2 Days, Location: None Selected Complete Blood Count w/diff [LAB.AMB] Time Frame: 2 Days, Location: None Selected Discharge Disposition: HOME SELF-CARE
== END 2021-06-21 17:30 | disposition home or self-care (01) | DRG 872 ==
LOC: EC 19:49 → OBSVTOIN 22:54 → 6NMEDSUR 22:54
PROVIDERS: ADMIT Hospitalist; ATTEND Hospitalist
DX: A41.51 Sepsis due to Escherichia coli [E. coli] (principal); E87.2 Acidosis; N10 Acute pyelonephritis; Z20.822 Contact with and (suspected) exposure to COVID-19; E11.9 Type 2 diabetes mellitus without complications; E78.5 Hyperlipidemia, unspecified; I10 Essential (primary) hypertension; K21.9 Gastro-esophageal reflux disease without esophagitis; N20.0 Calculus of kidney; Z79.899 Other long term (current) drug therapy; Z79.84 Long term (current) use of oral hypoglycemic drugs
CPT/HCPCS: 36415; 74177; 76770; 80048; 80053; 80202; 81001; 82150; 83605; 83690; 83735; 85025; 85027; 85610; 85730; 87040; 87077; 87086; 87186; 87635; 93005; 96361; 96365; 96375; 99291

== ENCOUNTER 2022-03-01 19:47 | Emergency (ER) | payer BC ==
[2022-03-01 19:54] VITALS: RESP 16; TEMP 97.6
[2022-03-01] MEDS ORDERED: GLUCAGON 1 MG/ML VIAL IM STA (20:27)
[2022-03-01] MEDS ORDERED: ONDANSETRON 4 MG/2 ML VIAL IM STA (20:28)
[2022-03-01 21:05] LABS: Glucose,Whole Blood 177 mg/dL (70-110)
[2022-03-01] MEDS ORDERED: NITROGLYCERIN SL TABS 0.4 MG TAB SUBLINGUAL STA (21:30)
[2022-03-01] MEDS ORDERED: ACETAMINOPHEN TAB 500 MG TAB PO STA (21:48)
[2022-03-01 21:50] VITALS: BP 96/72; PULSE 87
--- NOTE | 2022-03-01 21:51 | ED ---
ENT HPI - General Chief complaint: ENT Stated complaint: Fb stuck in throat, SOB Time Seen by Provider: 03/01/22 20:19 Source: patient Mode of arrival: ambulatory Limitations: no limitations - History of Present Illness Initial comments: Patient is a 61-year-old male with a past medical history of esophageal stricture s/p dilation 1 week ago who presents to the emergency department due to foreign body stuck in throat. Patient states he was eating a piece of salami which got stuck in his throat this evening. Patient reports throat irritation but no pain. He reports being able to swallow water and secretions. Reports eating full meals at home without limitation before today. Denies chest pain and SOB. Patient had esophageal dilation procedure one week ago with Dr. Hinds out of [facility]. - Related Data Home Medications Medication Instructions Recorded Confirmed Atorvastatin [Lipitor] 40 mg PO HS 06/18/21 06/18/21 Empagliflozin [Jardiance] 10 mg PO DAILY 06/18/21 06/18/21 Losartan Potassium 100 mg PO DAILY 06/18/21 06/18/21 metFORMIN HCL 1,000 mg PO BID 06/18/21 06/18/21 Previous Rx's Medication Instructions Recorded Acetaminophen Tab [Tylenol] 650 mg PO Q6HR PRN tab 06/21/21 Cyanocobalamin [Vitamin B-12] 500 mcg PO DAILY #30 tab 06/21/21 cefTRIAXone [Rocephin] 2 gm IVPB Q24HR each 06/21/21 cefUROXime axetiL [Ceftin] 500 mg PO BID 5 Days #10 tab 06/21/21 Allergies Allergy/AdvReac Type Severity Reaction Status Date / Time Penicillins Allergy Anaphylaxis Verified 03/01/22 19:50 Review of Systems ROS Statement: Those systems with pertinent positive or pertinent negative responses have been documented in the HPI. ROS Other: All systems not noted in ROS Statement are negative. Past Medical History Past Medical History: Deep Vein Thrombosis (DVT), GERD/Reflux Additional Past Medical History / Comment(s): esophageal stricture History of Any Multi-Drug Resistant Organisms: None Reported Past Surgical History: No Surgical Hx Reported Additional Past Surgical History / Comment(s): balloon for esophageal stricture Past Anesthesia/Blood Transfusion Reactions: No Reported Reaction Past Psychological History: No Psychological Hx Reported Smoking Status: Never smoker Past Alcohol Use History: None Reported Past Drug Use History: None Reported General Exam Limitations: no limitations General appearance: alert, in no apparent distress Eye exam: Present: normal appearance, PERRL, EOMI. Absent: scleral icterus, conjunctival injection, periorbital swelling Neck exam: Present: normal inspection, full ROM. Absent: tenderness Respiratory exam: Present: normal lung sounds bilaterally. Absent: respiratory distress, wheezes, rales, rhonchi, stridor Cardiovascular Exam: Present: regular rate, normal rhythm, normal heart sounds. Absent: systolic murmur, diastolic murmur, rubs, gallop, clicks GI/Abdominal exam: Present: soft, normal bowel sounds. Absent: distended, tenderness, guarding, rebound, rigid Neurological exam: Present: alert, oriented X3, CN II-XII intact Psychiatric exam: Present: normal affect, normal mood Skin exam: Present: warm, dry, intact, normal color. Absent: rash Course Vital Signs 03/01/22 03/01/22 03/01/22 19:50 21:40 21:49 Temperature 97.6 F Pulse Rate 79 84 87 Respiratory 16 Rate Blood Pressure 150/91 110/78 96/72 O2 Sat by Pulse 98 97 94 L Oximetry Medical Decision Making - Medical Decision Making This is a 61-year-old male presenting with esophageal foreign body. Patient well-appearing and in no apparent distress. I did speak with patient's surgeon who suggested attempt with glucagon. This was unsuccessful. Patient still felt very uncomfortable. I then spoke with surgeon again who recommended sublingual nitro. After one dose patient had significant relief. He was is closing the emergency department continued to feel well. Patient will be discharged with instruction to call his specialist office Thursday for appointment Thursday. Patient instructed to follow soft food diet strictly. Return parameters discussed. Dr. Glynn is my attending. - Lab Data Lab Results 03/01/22 Range/Units 21:04 POC Glucose (mg/dL) 177 H (70-110) mg/dL POC Glu Rn New Grad ID Caprice Handy Disposition Clinical Impression: Esophageal foreign body, History of esophageal dilatation Disposition: HOME SELF-CARE Condition: Good Instructions (If sedation given, give patient instructions): Esophageal Foreign Body (ED) Additional Instructions: Follow-up with GI specialist in 1-2 days. Make an appointment for thursday. Return to the emergency department if you experience new, concerning, or worsening symptoms. Is patient prescribed a controlled substance at d/c from ED?: No Referrals: Brendan Hoang MD [Primary Care Provider] - 1-2 days Time of Disposition: 21:50
== END 2022-03-01 22:11 | disposition home or self-care (01) ==
LOC: EC 19:47
DX: T18.108A Unspecified foreign body in esophagus causing other injury, initial encounter (principal); Z87.738 Personal history of other specified (corrected) congenital malformations of digestive system; Z88.0 Allergy status to penicillin
CPT/HCPCS: 36415; 99284; 96372; J1610; J2405

== ENCOUNTER 2022-03-20 23:49 | Emergency (ER) | payer BC ==
[2022-03-21] MEDS ORDERED: SODIUM CHLORIDE 0.9% 500 ML 500 ML IV STA (00:31)
[2022-03-21] MEDS ORDERED: GLUCAGON 1 MG/ML VIAL IVP STA (00:32)
[2022-03-21] MEDS ORDERED: NITROGLYCERIN SL TABS 0.4 MG TAB SUBLINGUAL STA (00:32)
[2022-03-21] MEDS ORDERED: LORazepam 2 MG/ML INJ IV STA (00:32)
--- NOTE | 2022-03-21 00:35 | ED ---
ENT HPI - General Chief complaint: ENT Stated complaint: Food Stuck in throat Time Seen by Provider: 03/21/22 00:15 Source: patient, RN notes reviewed Mode of arrival: ambulatory - History of Present Illness Initial comments: This is a pleasant 61-year-old male who presents again for recurrence of esophageal foreign body. Patient has a known esophageal stricture and is status post dilation in late January by Dr. Hinds at [facility]. Patient presents today stating he was eating beets about 20 minutes ago and feels that his another food bolus stuck in his esophagus. Patient quite adamant that we follow instructions given by his driller's offsider to our APC during the last visit here. No headache, no fever or chills, no changes in vision or hearing, no difficulty with speech, no neck pain, no chest pain or shortness of breath, no abdominal pain, no nausea or vomiting, no changes in urination or bowel movements, no numbness or tingling, no extremity pain, no skin rashes or lesions. Past medical, surgical, social, and family history reviewed. - Related Data Home Medications Medication Instructions Recorded Confirmed Atorvastatin [Lipitor] 40 mg PO HS 06/18/21 06/18/21 Empagliflozin [Jardiance] 10 mg PO DAILY 06/18/21 06/18/21 Losartan Potassium 100 mg PO DAILY 06/18/21 06/18/21 metFORMIN HCL 1,000 mg PO BID 06/18/21 06/18/21 Previous Rx's Medication Instructions Recorded Acetaminophen Tab [Tylenol] 650 mg PO Q6HR PRN tab 06/21/21 Cyanocobalamin [Vitamin B-12] 500 mcg PO DAILY #30 tab 06/21/21 cefTRIAXone [Rocephin] 2 gm IVPB Q24HR each 06/21/21 cefUROXime axetiL [Ceftin] 500 mg PO BID 5 Days #10 tab 06/21/21 Allergies Allergy/AdvReac Type Severity Reaction Status Date / Time Penicillins Allergy Anaphylaxis Verified 03/20/22 23:57 Review of Systems ROS Statement: Those systems with pertinent positive or pertinent negative responses have been documented in the HPI. ROS Other: All systems not noted in ROS Statement are negative. Past Medical History Past Medical History: Deep Vein Thrombosis (DVT), GERD/Reflux Additional Past Medical History / Comment(s): esophageal stricture History of Any Multi-Drug Resistant Organisms: None Reported Past Surgical History: No Surgical Hx Reported Additional Past Surgical History / Comment(s): balloon for esophageal stricture Past Anesthesia/Blood Transfusion Reactions: No Reported Reaction Past Psychological History: No Psychological Hx Reported Smoking Status: Never smoker Past Alcohol Use History: None Reported Past Drug Use History: None Reported General Exam General appearance: alert, in no apparent distress Head exam: Present: atraumatic, normocephalic, normal inspection Eye exam: Present: normal appearance, PERRL, EOMI. Absent: scleral icterus, conjunctival injection, periorbital swelling ENT exam: Present: normal exam, mucous membranes moist Neck exam: Present: normal inspection. Absent: tenderness, meningismus, lymphadenopathy Respiratory exam: Present: normal lung sounds bilaterally. Absent: respiratory distress, wheezes, rales, rhonchi, stridor Cardiovascular Exam: Present: regular rate, normal rhythm, normal heart sounds. Absent: systolic murmur, diastolic murmur, rubs, gallop, clicks GI/Abdominal exam: Present: soft, normal bowel sounds. Absent: distended, tenderness, guarding, rebound, rigid Extremities exam: Present: normal inspection, full ROM, normal capillary refill. Absent: tenderness, pedal edema, joint swelling, calf tenderness Back exam: Present: normal inspection Neurological exam: Present: alert, oriented X3, CN II-XII intact Psychiatric exam: Present: normal affect, normal mood Skin exam: Present: warm, dry, intact, normal color. Absent: rash Course Vital Signs 03/20/22 03/21/22 23:55 00:51 Temperature 98 F Pulse Rate 68 74 Respiratory 18 16 Rate Blood Pressure 154/86 O2 Sat by Pulse 97 96 Oximetry - Consultations Consultation #1: 03/21/22 01:03 Patient was improved after glucagon, sublingual nitroglycerin, and Ativan. Patient able to hold down fluids. Patient refused laboratory investigations and x-ray investigations as he was improved. 03/21/22 01:06 Medical Decision Making - Medical Decision Making I did refer to the patient's chart from the previous visit. It appears that the patient had relief after getting a sublingual nitroglycerin. Glucagon was attempted prior to that. We'll order Ativan, sublingual nitroglycerin, and glucagon here. Patient reevaluated twice prior to discharge. Able to hold down fluids without difficulty. Able to hold down food. Patient states she is feeling much better. Patient to call his driller's offsider in the morning without fail. Patient was told to return to the ER for any signs or symptoms worsen. Told to return immediately if any other problems arise. All questions answered. Treatment plan discussed. Patient in agreement Every effort has been made to ensure accuracy of this dictation. However, due to the limitations of electronic medical records and dictation devices, errors in charting still occur. patient refused laboratory workup and imaging. The case was discussed in detail with ED attending physician. Presentation, findings, treatment plan discussed in detail. President And Cmo Dr. Cordova Disposition Clinical Impression: Esophageal foreign body Narrative: Esophageal food bolus, resolved Disposition: HOME SELF-CARE Condition: Good Instructions (If sedation given, give patient instructions): Esophageal Foreign Body (ED) Additional Instructions: Call your driller's offsider at [facility] in the morning to schedule reevaluation. Follow-up with your regular physician as directed. Return to the ER immediately if any symptoms worsen, new symptoms arise, or any other problems develop. Is patient prescribed a controlled substance at d/c from ED?: No Referrals: Brendan Hoang MD [Primary Care Provider] - 1-2 days Time of Disposition: 01:05
[2022-03-21 00:51] VITALS: RESP 16
[2022-03-21 01:47] VITALS: BP 115/68; PULSE 73; TEMP 97.9
== END 2022-03-21 01:40 | disposition home or self-care (01) ==
LOC: EC 23:49
DX: T18.128A Food in esophagus causing other injury, initial encounter (principal); Z86.718 Personal history of other venous thrombosis and embolism; K21.9 Gastro-esophageal reflux disease without esophagitis; Z88.0 Allergy status to penicillin; Z79.84 Long term (current) use of oral hypoglycemic drugs; Z79.899 Other long term (current) drug therapy
CPT/HCPCS: 99283; 96374; 96375; J2060; J1610

== ENCOUNTER 2022-04-09 15:30 | Emergency (ER) | payer BC ==
[2022-04-09 15:37] VITALS: BP 107/66; PULSE 78; RESP 20; TEMP 97.4
[2022-04-09] MEDS ORDERED: GLUCAGON 1 MG/ML VIAL IVP STA (16:49)
[2022-04-09] MEDS ORDERED: NITROGLYCERIN SL TABS 0.4 MG TAB SUBLINGUAL STA (16:49)
--- NOTE | 2022-04-09 16:53 | ED ---
General Adult HPI - General Chief complaint: ENT Stated complaint: obstruction in throat Time Seen by Provider: 04/09/22 16:25 Source: patient, RN notes reviewed, old records reviewed Mode of arrival: ambulatory Limitations: no limitations - History of Present Illness Initial comments: This a 61-year-old male who presents emergency Department stating he's had food stuck in his throat before and he said he had his throat dilated. Patient states last night he was eating some chicken and it got stuck and he still feels as though it's stuck at this time. Patient states he is able to get a little fluid down but he is not able to eat anything solid. Patient states she usually gets sublingual nitro and something else and it usually works for him. Patient denies any other symptoms at this time. Patient denies chest pain or palpitations. Patient denies shortness of breath or difficulty breathing. Patient denies any headache. - Related Data Home Medications Medication Instructions Recorded Confirmed Atorvastatin [Lipitor] 40 mg PO HS 06/18/21 06/18/21 Empagliflozin [Jardiance] 10 mg PO DAILY 06/18/21 06/18/21 Losartan Potassium 100 mg PO DAILY 06/18/21 06/18/21 metFORMIN HCL 1,000 mg PO BID 06/18/21 06/18/21 Previous Rx's Medication Instructions Recorded Acetaminophen Tab [Tylenol] 650 mg PO Q6HR PRN tab 06/21/21 Cyanocobalamin [Vitamin B-12] 500 mcg PO DAILY #30 tab 06/21/21 cefTRIAXone [Rocephin] 2 gm IVPB Q24HR each 06/21/21 cefUROXime axetiL [Ceftin] 500 mg PO BID 5 Days #10 tab 06/21/21 Allergies Allergy/AdvReac Type Severity Reaction Status Date / Time Penicillins Allergy Anaphylaxis Verified 03/20/22 23:57 Review of Systems ROS Statement: Those systems with pertinent positive or pertinent negative responses have been documented in the HPI. ROS Other: All systems not noted in ROS Statement are negative. Past Medical History Past Medical History: Deep Vein Thrombosis (DVT), GERD/Reflux Additional Past Medical History / Comment(s): esophageal stricture History of Any Multi-Drug Resistant Organisms: None Reported Past Surgical History: No Surgical Hx Reported Additional Past Surgical History / Comment(s): balloon for esophageal stricture Past Anesthesia/Blood Transfusion Reactions: No Reported Reaction Past Psychological History: No Psychological Hx Reported Smoking Status: Never smoker Past Alcohol Use History: None Reported Past Drug Use History: None Reported General Exam - General Exam Comments Initial Comments: GENERAL: Patient is well-developed and well-nourished. Patient is nontoxic and well- hydrated and is in mild distress. ENT: Neck is soft and supple. No significant lymphadenopathy is noted. Oropharynx is clear. Moist mucous membranes. Neck has full range of motion without eliciting any pain. EYES: The sclera were anicteric and conjunctiva were pink and moist. Extraocular movements were intact and pupils were equal round and reactive to light. Eyelids were unremarkable. PULMONARY: Unlabored respirations. Good breath sounds bilaterally. No audible rales rhonchi or wheezing was noted. CARDIOVASCULAR: There is a regular rate and rhythm without any murmurs gallops or rubs. ABDOMEN: Soft and nontender with normal bowel sounds. SKIN: Skin is clear with no lesions or rashes and otherwise unremarkable. NEUROLOGIC: Patient is alert and oriented x3. Cranial nerves II through XII are grossly intact. Motor and sensory are also intact. Normal speech, volume and content. Symmetrical smile. MUSCULOSKELETAL: Normal extremities with adequate strength and full range of motion. PSYCHIATRIC: Patient is mildly anxious Limitations: no limitations Course Vital Signs 04/09/22 15:33 Temperature 97.4 F L Pulse Rate 78 Respiratory 20 Rate Blood Pressure 107/66 O2 Sat by Pulse 96 Oximetry Medical Decision Making - Medical Decision Making Patient was given sublingual nitroglycerin glucagon and Valium. I will back in the room patient was much more relaxed he stated he felt like he can swallow fine he believes he just may have had irritation to the side of his throat is now he feels fine and feels as though he can swallow anything even though there is still some discomfort is nowhere near as bad as it was. Disposition Clinical Impression: Globus hystericus Disposition: HOME SELF-CARE Condition: Good Instructions (If sedation given, give patient instructions): Esophageal Foreign Body (ED) Is patient prescribed a controlled substance at d/c from ED?: No Referrals: Brendan Hoang MD [Primary Care Provider] - 1-2 days Time of Disposition: 18:19
== END 2022-04-09 18:53 | disposition home or self-care (01) ==
LOC: EC 15:30
DX: F45.8 Other somatoform disorders (principal); Z86.718 Personal history of other venous thrombosis and embolism; K21.9 Gastro-esophageal reflux disease without esophagitis; Z88.0 Allergy status to penicillin; Z79.84 Long term (current) use of oral hypoglycemic drugs; Z79.899 Other long term (current) drug therapy
CPT/HCPCS: 99283; 96374; 96375; J1610; J3360

== ENCOUNTER 2024-05-20 13:08 | Emergency (ER) | payer BC ==
[2024-05-20] MEDS: ONDANSETRON 4 MG/2 ML VIAL IVP STA (13:53)
[2024-05-20] MEDS: SODIUM CHLORIDE 0.9% 500 ML 500 ML IV STA (13:53)
[2024-05-20] MEDS: SODIUM CHLORIDE 0.9% 1,000 ML IV STA (13:54)
[2024-05-20 14:05] LABS: Basophils % (A) 0 %; Eosinophils % (A) 0 %; HCT 43.8 % (39.0-53.0); Lymphocytes # (A) 1.3 k/uL (1.0-4.8); Lymphocytes % (A) 9 %; MCH 29.8 pg (25.0-35.0); MCHC 34.3 g/dL (31.0-37.0); MCV 86.8 fL (80.0-100.0); Mean Platelet Volume 7.2; Monocytes # (A) 0.9 k/uL (0-1.0); Monocytes % (A) 6 %; Neutrophils # (A) 12.7 k/uL (1.3-7.7); Neutrophils % (A) 84 %; Platelet Count 219 k/uL (150-450); RBC 5.05 m/uL (4.30-5.90); RDW 12.5 % (11.5-15.5); WBC 15.1 k/uL (3.8-10.6)
[2024-05-20] MEDS: KETOROLAC 15 MG/ML 1 ML VIAL IVP STA (14:08)
[2024-05-20 14:15] LABS: Appearance,Urine Clear (Clear); Bilirubin,Urine Negative (Negative); Blood,Urine Negative (Negative); Color,Urine Light Yellow; Glucose,Urine (UA) Negative (Negative); Ketones,Urine Negative (Negative); Leukocyte Esterase,Urine Small (Negative); Mucus,Urine Rare /hpf; Nitrite,Urine Negative (Negative); PH, Urine 5.5 (5.0-8.0); Protein,Urine 1+ (Negative); RBC,Urine 1 /hpf (0-5); Specific Gravity,Urine 1.011 (1.001-1.035); Squamous Epithelial Cell,Urine <1 /hpf (0-4); Urobilinogen,Urine <2.0 mg/dL (<2.0); WBC,Urine 22 /hpf (0-5)
[2024-05-20 14:35] LABS: ALT 17 U/L (4-49); AST 21 U/L (17-59); African American GFR (CKD) >90 (>60 ml/min/1.73 sqM); Albumin 4.7 g/dL (3.5-5.0); Alkaline Phosphatase 72 U/L (38-126); Anion Gap 9 mmol/L; Blood Urea Nitrogen 14 mg/dL (9-20); Calcium 9.6 mg/dL (8.4-10.2); Carbon Dioxide 29 mmol/L (22-30); Chloride 97 mmol/L (98-107); Glucose 211 mg/dL (74-99); Lipase 105 U/L (23-300); Magnesium 1.9 mg/dL (1.6-2.3); Non-African American GFR(CKD) >90 (>60 ml/min/1.73 sqM); Potassium 3.9 mmol/L (3.5-5.1); Sodium 135 mmol/L (137-145); Total Bilirubin 1.2 mg/dL (0.2-1.3); Total Protein 6.9 g/dL (6.3-8.2)
[2024-05-20 15:11] VITALS: PULSE 86; RESP 18
--- NOTE | 2024-05-20 15:25 | ED ---
Nausea/Vomiting/Diarrhea HPI - General Chief complaint: Nausea/Vomiting/Diarrhea Stated complaint: Back pain, constipation, high sugar Time Seen by Provider: 05/20/24 13:24 Source: patient, RN notes reviewed Mode of arrival: ambulatory Limitations: no limitations - History of Present Illness Initial comments: 63-year-old male presents emergency department chief complaint of dysuria. Patient states he has some hesitancy and discomfort with urination. Patient states he had some chills without known fever, shaking chills. Patient states that he had a UTI 3 weeks ago. Patient denies any chest pain shortness of breath states he has no localized abdominal pain states his blood sugar was elevated but did improve. He states has been taking Tylenol for the discomfort. - Related Data Home Medications Medication Instructions Recorded Confirmed Atorvastatin [Lipitor] 40 mg PO HS 06/18/21 06/18/21 Empagliflozin [Jardiance] 10 mg PO DAILY 06/18/21 06/18/21 Losartan Potassium 100 mg PO DAILY 06/18/21 06/18/21 metFORMIN HCL 1,000 mg PO BID 06/18/21 06/18/21 Previous Rx's Medication Instructions Recorded Acetaminophen Tab [Tylenol] 650 mg PO Q6HR PRN tab 06/21/21 Cyanocobalamin [Vitamin B-12] 500 mcg PO DAILY #30 tab 06/21/21 cefTRIAXone [Rocephin] 2 gm IVPB Q24HR each 06/21/21 cefuroxime axetiL [Ceftin] 500 mg PO BID 5 Days #10 tab 06/21/21 Ciprofloxacin HCl [Cipro] 500 mg PO Q12HR #20 tablet 05/20/24 Allergies Allergy/AdvReac Type Severity Reaction Status Date / Time Penicillins Allergy Anaphylaxis Verified 05/20/24 13:21 Review of Systems ROS Statement: Those systems with pertinent positive or pertinent negative responses have been documented in the HPI. ROS Other: All systems not noted in ROS Statement are negative. Past Medical History Past Medical History: Deep Vein Thrombosis (DVT), GERD/Reflux Additional Past Medical History / Comment(s): esophageal stricture History of Any Multi-Drug Resistant Organisms: None Reported Past Surgical History: No Surgical Hx Reported Additional Past Surgical History / Comment(s): balloon for esophageal stricture Past Anesthesia/Blood Transfusion Reactions: No Reported Reaction Past Psychological History: No Psychological Hx Reported Smoking Status: Never smoker Past Alcohol Use History: None Reported Past Drug Use History: None Reported General Exam Limitations: no limitations General appearance: alert, in no apparent distress Head exam: Present: atraumatic, normocephalic, normal inspection Respiratory exam: Present: normal lung sounds bilaterally. Absent: respiratory distress, wheezes, rales, rhonchi, stridor Cardiovascular Exam: Present: regular rate, normal rhythm, normal heart sounds. Absent: systolic murmur, diastolic murmur, rubs, gallop, clicks GI/Abdominal exam: Present: soft, normal bowel sounds. Absent: distended, tenderness, guarding, rebound, rigid Back exam: Present: CVA tenderness (R) (Very minimal). Absent: CVA tenderness (L) Course Vital Signs 05/20/24 05/20/24 05/20/24 13:18 15:08 16:00 Temperature 98 F 97.6 F 98.3 F Pulse Rate 104 H 86 86 Respiratory 20 18 18 Rate Blood Pressure 125/75 118/72 153/88 O2 Sat by Pulse 96 95 97 Oximetry Medical Decision Making - Medical Decision Making Was pt. sent in by a medical professional or institution (, PA, [employer], urgent care, hospital, or [facility]...) When possible be specific @ -No Did you speak to anyone other than the patient for history (EMS, parent, family, police, friend...)? What history was obtained from this source @ -No Did you review nursing and triage notes (agree or disagree)? Why? @ -I reviewed and agree with nursing and triage notes Were old charts reviewed (outside hosp., previous admission, EMS record, old EKG, old radiological studies, urgent care reports/EKG's, [facility] records)? Report findings @ -No old charts were reviewed Differential Diagnosis (chest pain, altered mental status, abdominal pain women, abdominal pain men, vaginal bleeding, weakness, fever, dyspnea, syncope, headache, dizziness, GI bleed, back pain, seizure, CVA, palpatations, mental health, musculoskeletal)? @ -Differential Abdominal Pain Men: Appendicitis, cholecystitis, diverticulosis, ischemic bowel, pancreatitis, he patitis, UTI, gastroenteritis, AAA, incarcerated hernia, bowel obstruction, constipation, inflammatory bowel, hepatitis, peptic ulcer disease, splenic infarction, perforated viscus, testicular torsion, this is not meant to be an all-inclusive list EKG interpreted by me (3pts min.). @ -None X-rays interpreted by me (1pt min.). @ -None done CT interpreted by me (1pt min.). @ -None done U/S interpreted by me (1pt. min.). @ -None done What testing was considered but not performed or refused? (CT, X-rays, U/S, labs)? Why? @ -None What meds were considered but not given or refused? Why? @ -None Did you discuss the management of the patient with other professionals (professionals i.e. , PA, [employer], lab, RT, psych nurse, social sciences department chair, credit administration manager, teacher, customs officer, case aide)? Give summary @ -No Was smoking cessation discussed for >3mins.? @ -No Was critical care preformed (if so, how long)? @ -No Were there social determinants of health that impacted care today? How? (Homelessness, low income, unemployed, alcoholism, drug addiction, transportation, low edu. Level, literacy, decrease access to med. care, halfway, rehab)? @ -No Was there de-escalation of care discussed even if they declined (Discuss DNR or withdrawal of care, Hospice)? DNR status @ -No What co-morbidities impacted this encounter? (DM, HTN, Smoking, COPD, CAD, Cancer, CVA, ARF, Chemo, Hep., AIDS, mental health diagnosis, sleep apnea, morbid obesity)? @ -None Was patient admitted / discharged? Hospital course, mention meds given and route, prescriptions, significant lab abnormalities, going to OR and other pertinent info. @ -Discharge patient feels greatly improved this time. Laboratory study show evidence of UTI, mild leukocytosis. I did offer admission given lactic acidosis without fever. Patient states he feels comfortable after IV dose of antibiotics, discharged on antibiotics advised he needs to follow-up with urology for concerns of possible prostatitis and recurrent UTIs. Patient understands he states he has urologist that he will follow-up with and strict return parameters discussed. Undiagnosed new problem with uncertain prognosis? @ -No Drug Therapy requiring intensive monitoring for toxicity (Heparin, Nitro, Insulin, Cardizem)? @ -No Were any procedures done? @ -No Diagnosis/symptom? @UTI Acute, or Chronic, or Acute on Chronic? @ -Acute Uncomplicated (without systemic symptoms) or Complicated (systemic symptoms)? @ -Complicated Side effects of treatment? @ -No Exacerbation, Progression, or Severe Exacerbation? @ -No Poses a threat to life or bodily function? How? (Chest pain, [place], [place], pneumonia, PE, COPD, DKA, ARF, appy, cholecystitis, CVA, Diverticulitis, Homicidal, Suicidal, threat to staff... and all critical care pts) @ -No - Lab Data Result diagrams: 05/20/24 13:42 05/20/24 13:42 Lab Results 05/20/24 05/20/24 05/20/24 Range/Units 13:42 13:42 13:42 WBC 15.1 H (3.8-10.6) k/uL RBC 5.05 (4.30-5.90) m/uL Hgb 15.0 (13.0-17.5) gm/dL Hct 43.8 (39.0-53.0) % MCV 86.8 (80.0-100.0) fL MCH 29.8 (25.0-35.0) pg MCHC 34.3 (31.0-37.0) g/dL RDW 12.5 (11.5-15.5) % Plt Count 219 (150-450) k/uL MPV 7.2 Neutrophils % 84 % Lymphocytes % 9 % Monocytes % 6 % Eosinophils % 0 % Basophils % 0 % Neutrophils # 12.7 H (1.3-7.7) k/uL Lymphocytes # 1.3 (1.0-4.8) k/uL Monocytes # 0.9 (0-1.0) k/uL Eosinophils # 0.0 (0-0.7) k/uL Basophils # 0.0 (0-0.2) k/uL Sodium 135 L (137-145) mmol/L Potassium 3.9 (3.5-5.1) mmol/L Chloride 97 L (98-107) mmol/L Carbon Dioxide 29 (22-30) mmol/L Anion Gap 9 mmol/L BUN 14 (9-20) mg/dL Creatinine 0.70 (0.66-1.25) mg/dL Est GFR (CKD-EPI)AfAm >90 (>60 ml/min/1.73 sqM) Est GFR (CKD-EPI)NonAf >90 (>60 ml/min/1.73 sqM) Glucose 211 H (74-99) mg/dL Plasma Lactic Acid Julius 2.9 H* (0.7-2.0) mmol/L Calcium 9.6 (8.4-10.2) mg/dL Magnesium 1.9 (1.6-2.3) mg/dL Total Bilirubin 1.2 (0.2-1.3) mg/dL AST 21 (17-59) U/L ALT 17 (4-49) U/L Alkaline Phosphatase 72 (38-126) U/L Total Protein 6.9 (6.3-8.2) g/dL Albumin 4.7 (3.5-5.0) g/dL Lipase 105 (23-300) U/L Urine Color Urine Appearance (Clear) Urine pH (5.0-8.0) Ur Specific [place] (1.001-1.035) Urine Protein (Negative) Urine Glucose (UA) (Negative) Urine Ketones (Negative) Urine Blood (Negative) Urine Nitrite (Negative) Urine Bilirubin (Negative) Urine Urobilinogen (<2.0) mg/dL Ur Leukocyte Esterase (Negative) Urine RBC (0-5) /hpf Urine WBC (0-5) /hpf Ur Squamous Epith Cells (0-4) /hpf Urine Mucus (None) /hpf 05/20/24 Range/Units 13:56 WBC (3.8-10.6) k/uL RBC (4.30-5.90) m/uL Hgb (13.0-17.5) gm/dL Hct (39.0-53.0) % MCV (80.0-100.0) fL MCH (25.0-35.0) pg MCHC (31.0-37.0) g/dL RDW (11.5-15.5) % Plt Count (150-450) k/uL MPV Neutrophils % % Lymphocytes % % Monocytes % % Eosinophils % % Basophils % % Neutrophils # (1.3-7.7) k/uL Lymphocytes # (1.0-4.8) k/uL Monocytes # (0-1.0) k/uL Eosinophils # (0-0.7) k/uL Basophils # (0-0.2) k/uL Sodium (137-145) mmol/L Potassium (3.5-5.1) mmol/L Chloride (98-107) mmol/L Carbon Dioxide (22-30) mmol/L Anion Gap mmol/L BUN (9-20) mg/dL Creatinine (0.66-1.25) mg/dL Est GFR (CKD-EPI)AfAm (>60 ml/min/1.73 sqM) Est GFR (CKD-EPI)NonAf (>60 ml/min/1.73 sqM) Glucose (74-99) mg/dL Plasma Lactic Acid Julius (0.7-2.0) mmol/L Calcium (8.4-10.2) mg/dL Magnesium (1.6-2.3) mg/dL Total Bilirubin (0.2-1.3) mg/dL AST (17-59) U/L ALT (4-49) U/L Alkaline Phosphatase (38-126) U/L Total Protein (6.3-8.2) g/dL Albumin (3.5-5.0) g/dL Lipase (23-300) U/L Urine Color Light Yellow Urine Appearance Clear (Clear) Urine pH 5.5 (5.0-8.0) Ur Specific [place] 1.011 (1.001-1.035) Urine Protein 1+ H (Negative) Urine Glucose (UA) Negative (Negative) Urine Ketones Negative (Negative) Urine Blood Negative (Negative) Urine Nitrite Negative (Negative) Urine Bilirubin Negative (Negative) Urine Urobilinogen <2.0 (<2.0) mg/dL Ur Leukocyte Esterase Small H (Negative) Urine RBC 1 (0-5) /hpf Urine WBC 22 H (0-5) /hpf Ur Squamous Epith Cells <1 (0-4) /hpf Urine Mucus Rare H (None) /hpf Disposition Clinical Impression: UTI (urinary tract infection) Disposition: HOME SELF-CARE Condition: Stable Instructions (If sedation given, give patient instructions): Urinary Tract Infection in Men (ED) Additional Instructions: Please return to the Emergency Department if symptoms worsen or any other concerns. Prescriptions: Ciprofloxacin HCl [Cipro] 500 mg PO Q12HR #20 tablet Is patient prescribed a controlled substance at d/c from ED?: No Referrals: Roque Carrasco DO [Primary Care Provider] - 1-2 days Time of Disposition: 15:24
[2024-05-20 16:13] VITALS: BP 153/88; TEMP 98.3
== END 2024-05-20 16:26 | disposition home or self-care (01) ==
LOC: EC 13:08
DX: N39.0 Urinary tract infection, site not specified (principal); Z88.0 Allergy status to penicillin
CPT/HCPCS: 99284; 96365; 96375; 96361; 36415; 80053; 83605; 83690; 83735; 85025; 81001; 87086; J2405; J0696; J1885; 87077; 87186